=== PATIENT | female | born 1990 | race Caucasian/White ===

== ENCOUNTER 2016-07-06 23:34 | Emergency (ER) | payer OTHER ==
[2016-07-06 23:54] VITALS: BP 133/65
--- NOTE | 2016-07-07 01:09 | ERNOTE ---
Medical Problem HPI - Narrative Date of Service: 07/07/16 - OB Dr. Tana Nagy - General Chief Complaint: General Assessment Time Seen by Provider: 07/07/16 00:48 Source: patient Exam Limitations: no limitations - Immun/Allergies/Home Medications Immunizations: IMMUNIZATION HX Immunizations Up to Date No History of Influenza Vaccine No Hx Pneumococcal Vaccination No Allergies/Adverse Reactions: Allergies amoxicillin [Amoxicillin] Allergy (Unknown, Verified 07/06/16 23:55) egg Allergy (Unknown, Verified 07/06/16 23:55) Nausea flu vaccine 2010- *RETIRED-01/19/13 [flu vaccine [id number] (3 yr +)] Allergy ( Unknown, Verified 07/06/16 23:55) Penicillins Allergy (Unknown, Verified 07/06/16 23:55) Home Medications: HOME MEDICATIONS NK [No Home Medication] 07/06/16 [Last Taken Unknown] - Pain Score Pain Score #1 Pain Score: 4 - intermittent comes and goes - History of Present History Narrative: Patient is a female at 7 weeks gestation by early Vaginal US. Presents with pelvic cramping and vaginal bleeding. Last 1 + yr ago, delivered via . Date (Duration): 07/04/16 - evaluated by OB on Saturday, IUP 7 weeks confirmed Time (Timing): 08:00 Timing: intermittent Severity: moderate Modifying Factors - (Improves): Present: rest, other Modifying Factors - (Worsens): Present: movement, other - unclear why it is worsening Review of Systems - Narrative Narrative: female at 7 weeks gestation and started spotting on Saturday confirmed IUP via US 7 weeks, started spotting 2 hrs prior to presentation - Review of Systems Constitutional: Present: no symptoms reported EYE: Present: no symptoms reported ENT: Present: no symptoms reported Respiratory: Present: no symptoms reported Cardiology: Present: no symptoms reported Gastrointestinal/Abdominal: Present: abdominal pain, other - right lower quadrant / IUP 7 WKS Genitourinary: Present: no symptoms reported Musculoskeletal: Present: no symptoms reported. Absent: back pain, muscle pain Skin: Present: no symptoms reported Neurological: Present: no symptoms reported Endocrine: Present: no symptoms reported Hematologic/Lymphatic: Present: no symptoms reported Psych: Present: no symptoms reported - Patient's Past Medical History Patient History - Medical: No pertinent hx, Other - CURRENT IUP 7 WKS Patient History - Cardiac/Respiratory: No pertinent hx Patient History - Cancer: No Hx of Cancer Patient History - Surgical Procedures: Cholecystectomy, - Social History Living Situations: home Does anyone smoke in the home?: Yes - Patient Smoking Status: Former smoker Have you smoked in the past 12 months: Yes Alcohol Use: none Drug Use: none Physical Exam - Physical Exam Narrative: distressed when crampy abdominal worsens. General Appearance: Present: wd/wn, alert, no apparent distress, mild distress Eye Exam: Normal inspection: bilateral, PERRL: bilateral, EOMI: bilateral Ears, Nose, Throat: Present: normal ENT inspection, hearing grossly normal, normal pharynx Neck: Present: normal inspection, nontender Respiratory: Present: no respiratory distress, normal breath sounds, chest nontender, lungs clear Peripheral Pulses: N=norm/S=strong/W=weak/B=bound/A=absent: Carotid (R): Normal , Carotid (L): Normal, Radial (R): Normal, Radial (L): Normal Gastrointestinal/Abdominal: Present: normal bowel sounds, tenderness - right lower quad Rectal Exam: Present: nontender, normal rectal tone Back Exam: Present: normal inspection, normal range of motion, no CVA tenderness , no vertebral tenderness Extremity Exam: Present: normal inspection, non-tender. Absent: pedal edema Neurological Exam: Present: alert, oriented, normal mood/affect, no motor/ sensory deficits Skin Exam: Present: normal color, warm/dry Lymphatic Exam: Present: no adenopathy Pelvic Exam: Present: tender adnexa - on right consistent with corpus leutum cyst probably , other - old dark blood, cervical os is closed, bluish color to the cervix consistent with . Absent: active bleeding, discharge, lesions ED Progress - Date and Time Seen: Date and Time: 07/07/16 02:56 Patient is noted to have increasing Quantitative HCG since 07/04/2016 patient will get Rhogam and be discharged to follow up with her OBGyn. - Results and Orders Patient's Lab Results:: I have reviewed the patient's lab results. - Vital Signs Patient's Vital Signs:: I have reviewed the patient's vital signs. Vital Signs: Vital Signs 07/06/16 23:48 Temperature 36.3 C L Pulse Rate 104 H Respiratory 18 Rate Blood Pressure 133/65 - CT/Ultrasound CT/Ultrasound Narrative: Reviewed prior US done on Saturday. - Progress/Reassessment Chief Complaint: General Assessment Progress:: Pain free at discharge Plan - Plan Plan: Patient hcg levels increasing : positive for now, in that we have a confirmed IUP and no further bright red bleeding and she has a follow up with her ob next week. Laboratory Last Values WBC 9.2 K/mm3 (4.0-10.5) 07/07/16 01:20 RBC 3.72 M/mm3 (4.2-5.4) L 07/07/16 01:20 Hgb 11.3 gm/dL (12.5-16.0) L 07/07/16 01:20 Hct 32.9 % (37.0-47.0) L 07/07/16 01:20 MCV 88.4 fl (78-100) 07/07/16 01:20 MCH 30.4 pg (27-31) 07/07/16 01:20 MCHC 34.3 g/dl (32-36) 07/07/16 01:20 RDW 12.3 % (11.5-14.0) 07/07/16 01:20 Plt Count 206 K/mm3 (150-450) 07/07/16 01:20 MPV 10.5 fl (6.0-9.5) H 07/07/16 01:20 Immature Gran % (Auto) 0.30 % (0.001-0.429) 07/07/16 01:20 Immature Gran # (Auto) 0.03 K/mm3 (0.000-0.0310) 07/07/16 01:20 Neutrophils % 73.6 % (42-75.0) 07/07/16 01:20 Lymphocytes % 17.1 % (20-51) L 07/07/16 01:20 Monocytes % 7.6 % (0.0-9) 07/07/16 01:20 Eosinophils % 1.0 % (0.0-3.0) 07/07/16 01:20 Basophils % 0.4 % (0.0-1.0) 07/07/16 01:20 Nucleated RBC % 0.0 k/mm3 (0-1) 07/07/16 01:20 Neutrophils # 6.8 K/mm3 (1.3-6.0) H 07/07/16 01:20 Lymphocytes # 1.6 k/mm3 (1.5-3.5) 07/07/16 01:20 Monocytes # 0.7 k/mm3 (0.0-1.0) 07/07/16 01:20 Eosinophils # 0.1 k/mm3 (0.0-0.7) 07/07/16 01:20 Absolute Basophils 0.0 k/mm3 (0.0-0.1) 07/07/16 01:20 Sodium 140 mmol/L (132-142) 07/07/16 01:20 Plasma Sodium 140 mmol/L (130-142) 07/07/16 01:20 Potassium 3.5 mmol/L (3.4-4.6) 07/07/16 01:20 Chloride 105 mmol/L (97-106) 07/07/16 01:20 Carbon Dioxide 22.3 mmol/L (24-32.6) L 07/07/16 01:20 Anion Gap 16.2 mmol/L (6.8-13.8) H 07/07/16 01:20 BUN 7 mg/dL (3-23) 07/07/16 01:20 Creatinine 0.44 mg/dL (0.4-1.4) 07/07/16 01:20 Est GFR (Non-Af Amer) 184 mL/min (60-130) H 07/07/16 01:20 BUN/Creatinine Ratio 15.9 (9.0-21.6) 07/07/16 01:20 Random Glucose 98 mg/dL (70-110) 07/07/16 01:20 Calcium 8.9 mg/dL (7.9-10.9) 07/07/16 01:20 Calcium Adj for Albumin 8.6 mg/dL (8.4-10.2) 07/07/16 01:20 Total Bilirubin 0.3 mg/dL (0.0-1.1) 07/07/16 01:20 AST 8 U/L (0-48) 07/07/16 01:20 ALT 15 U/L (19-67) L 07/07/16 01:20 Alkaline Phosphatase 73 U/L (50-170) 07/07/16 01:20 Total Protein 7.0 gm/dL (6.2-8.2) 07/07/16 01:20 Albumin 4.0 gm/dl (3.4-5.0) 07/07/16 01:20 Urine Color Colorless 07/07/16 01:20 Urine Appearance Turbid 07/07/16 01:20 Urine pH 7.0 pH (5.0-7.0) 07/07/16 01:20 Ur Specific [place] <=1.005 SP.GR. (1.005-1.010) 07/07/16 01:20 Urine Protein Negative mg/dL (NEGATIVE) 07/07/16 01:20 Urine Glucose (UA) Negative mg/dL (NEGATIVE) 07/07/16 01:20 Urine Ketones Negative mg/dL (NEGATIVE) 07/07/16 01:20 Urine Blood 50 /ul (NEGATIVE) H 07/07/16 01:20 Urine Nitrate Negative (NEGATIVE) 07/07/16 01:20 Urine Bilirubin Negative mg/dl (NEGATIVE) 07/07/16 01:20 Urine Urobilinogen Normal EU/dl (NORMAL) 07/07/16 01:20 Ur Leukocyte Esterase Negative /ul (NEGATIVE) 07/07/16 01:20 Urine RBC 10-25 /hpf (0-5) H 07/07/16 01:20 Urine WBC 0-5 /hpf (0-5) 07/07/16 01:20 Ur Epithelial Cells 5-10 /hpf (0-5) H 07/07/16 01:20 Urine Bacteria None seen (NONE) 07/07/16 01:20 Urine Culture Comments No culture indicated 07/07/16 01:20 Maternal Serum HCG 49031 mIU/mL (0-6) H D 07/07/16 01:49 Screen Negative (Negative) 07/07/16 01:31 Patient stable for discharge. Departure - Departure Clinical Impression: First trimester bleeding Rh negative status during Qualifiers: Trimester: first trimester Qualified Code(s): O09.891 - Supervision of other high risk pregnancies, first trimester Disposition: Home self-care Condition: Good Additional Instructions: Your HCG is increasing, to treat the vaginal bleeding, please do not lift greater than 25 lbs and rest, drink plenty of fluids return if vaginal bleeding recurrs. See your Ob provider in 5 days. Referrals: Alireza Nagy DO [Primary Care Provider] -
[2016-07-07] MEDS ORDERED: NORMAL SALINE 1,000 ML IV ONE (01:14)
[2016-07-07 01:24] LABS: Hematocrit 32.9 % (37.0-47.0); Hemoglobin 11.3 gm/dL (12.5-16.0); Mean Cell Volume 88.4 fl (78-100); Mean Corpuscular Hemoglobin 30.4 pg (27-31); Mean Corpuscular Hgb Conc 34.3 g/dl (32-36); Mean Platelet Volume 10.5 fl (6.0-9.5); Neutrophil # 6.8 K/mm3 (1.3-6.0); Neutrophil % 73.6 % (42-75.0); Platelet Count 206 K/mm3 (150-450); Red Blood Count 3.72 M/mm3 (4.2-5.4); Red Cell Distribution Width 12.3 % (11.5-14.0); White Blood Count 9.2 K/mm3 (4.0-10.5)
[2016-07-07 01:28] LABS: Urine Bilirubin Negative (NEGATIVE); Urine Blood 50 /ul (NEGATIVE); Urine Ketone Negative (NEGATIVE); Urine Nitrite Negative (NEGATIVE); Urine Protein Negative (NEGATIVE); Urine Specific Gravity <=1.005 SP.GR. (1.005-1.010); Urine Urobilinogen Normal (NORMAL)
[2016-07-07 01:38] LABS: Anion Gap 16.2 mmol/L (6.8-13.8); BUN/Creatinine Ratio 15.9 (9.0-21.6); Bilirubin, Total 0.3 mg/dL (0.0-1.1); Ca. Corrected For Albumin 8.6 mg/dL (8.4-10.2); Calcium * 8.9 mg/dL (7.9-10.9); Carbon Dioxide 22.3 mmol/L (24-32.6); Potassium 3.5 mmol/L (3.4-4.6)
[2016-07-07 01:41] LABS: Urine Appearance Turbid; Urine Bacteria None Seen; Urine Color Colorless; Urine WBC 0-5 /hpf (0-5)
[2016-07-07] MEDS ORDERED: RHO(D) IMMUNE GLOBULIN 300 MCG DISP.SYRIN IM ONE (03:00)
== END 2016-07-07 03:13 | disposition home or self-care (01) ==
LOC: ER 23:34
DX: O20.9 Hemorrhage in early pregnancy, unspecified (principal); O09.891 Supervision of other high risk pregnancies, first trimester; R10.2 Pelvic and perineal pain; Z3A.01 Less than 8 weeks gestation of pregnancy; Z87.891 Personal history of nicotine dependence
CPT/HCPCS: 36415; 80053; 81001; 84702; 85025; 85460; 96372; 99284; J2790

== ENCOUNTER 2016-08-17 18:36 | Emergency (ER) | payer OTHER ==
[2016-08-17 19:02] VITALS: BP 110/64
[2016-08-17] MEDS ORDERED: NORMAL SALINE 1,000 ML IV ONE (20:18)
[2016-08-17] MEDS ORDERED: METOCLOPRAMIDE HCL 5 MG/ML VIAL IV ONE (20:22)
[2016-08-17] MEDS ORDERED: diphenhydrAMINE HCL 50 MG/ML VIAL IV ONE (20:22)
--- OUTSIDE RECORDS SUMMARY | 2016-08-17 20:22 | XMS REPORT | Continuity of Care Document ---
:1990 Author Organization [facility] ([facility]) Address [address] [place] [address] Phone [phone] Care Team Providers Name Role Phone LloydAlyssa Primary Care Provider [phone] Source Comments This disclosure is being made pursuant to the Care Everywhere program, applicable federal and state laws, and may not contain all informaitonavailable regarding this patient.[facility] ([facility]) Active Allergies and Adverse Reactions Not on File Current Medications Not on file Active Problems Not on file Social History Tobacco Use Types Packs/Day Years Used Date Never Assessed Plan of Care Health Maintenance Due Date Last Done Comments Hepatitis B Vaccine (1 of 3 - Primary Series) 1990 HPV Vaccine (1 of 3 - Female/Unknown 3 Dose Series) 2001 Tdap Vaccine 2001 Cervical Cancer Screening 2008 Lipid Disorder Screening 2008 MMR Vaccine 2008 Td Vaccine 2008 Varicella Vaccine (1 of 2 - Adult - No Evidence of 2008 Immunity) Influenza Vaccine: Seasonal (#1) 01/16/2016 Results from Last 3 Months Not on file
--- NOTE | 2016-08-17 20:32 | ERNOTE ---
Headache ER HPI - Narrative Date of Service: 08/17/16 - General Presenting Symptoms: "migraine" Time Seen by Provider: 08/17/16 20:03 Source: patient Exam Limitations: no limitations - Immun/Allergies/Home Medications Immunizations: IMMUNIZATION HX Immunizations Up to Date No History of Influenza Vaccine No Hx Pneumococcal Vaccination No Allergies/Adverse Reactions: Allergies amoxicillin [Amoxicillin] Allergy (Unknown, Verified 07/06/16 23:55) egg Allergy (Unknown, Verified 07/06/16 23:55) Nausea flu vaccine 2010- *RETIRED-01/19/13 [flu vaccine 5937-6556 (3 yr +)] Allergy ( Unknown, Verified 07/06/16 23:55) Penicillins Allergy (Unknown, Verified 07/06/16 23:55) Home Medications: HOME MEDICATIONS NK [No Home Medication] 07/06/16 [Last Taken Unknown] - History of Present Illness Narrative: Pt. comes in with c/o migraine for two weeks. Pt. states that it is sometimes accompanied by numbness and tingling in her arm or leg, but that is random and does not follow any pattern with the migraine and is intermittent as well. Pt. denies any SOB, CP, or diarrhea but she has been nauseated and is not feeling relief despite taking 1000 mg of magnesium as prescribed by her OB. Timing of Headache: gradual, intermittent Quality: Present: achy Review of Systems - Review of Systems Constitutional: Present: no symptoms reported. Absent: recent illness, fever, chills, weakness, fatigue, malaise EYE: Present: no symptoms reported ENT: Present: no symptoms reported Respiratory: Present: no symptoms reported. Absent: shortness of breath, cough , wheezing Cardiology: Present: no symptoms reported. Absent: chest pain, palpitations, edema Gastrointestinal/Abdominal: Present: nausea, vomiting, eating less, drinking less. Absent: diarrhea, abdominal pain Genitourinary: Present: decreased urinary output. Absent: frequency, pain, discharge Musculoskeletal: Present: no symptoms reported. Absent: back pain, joint pain Skin: Present: no symptoms reported. Absent: rash, change in hair/nails Neurological: Present: headache, numbness, tingling. Absent: dizziness/light- headedness All Other Systems: All systems neg except as marked - Patient's Past Medical History Patient History - Medical: No pertinent hx Patient History - Cardiac/Respiratory: No pertinent hx Patient History - Cancer: No Hx of Cancer Patient History - Surgical Procedures: Cholecystectomy, Patient History - Other: None LMP (Calendar): 05/18/16 - Social History Living Situations: home Psych History: No pertinent hx Does anyone smoke in the home?: Yes - Patient Smoking Status: Former smoker Have you smoked in the past 12 months: Yes Alcohol Use: none Drug Use: none - Immunizations Immunizations Up to Date: No Hx Pneumococcal Vaccination: No History of Influenza Vaccine: No Physical Exam - Physical Exam General Appearance: Present: wd/wn, alert, no apparent distress Eye Exam: Normal inspection: bilateral, PERRL: bilateral, EOMI: bilateral Ears, Nose, Throat: Present: normal ENT inspection, normal pharynx Neck: Present: normal inspection, nontender. Absent: lymphadenopathy (R), lymphadenopathy (L) Respiratory: Present: no respiratory distress, normal breath sounds, no accessory muscle use, chest nontender, lungs clear Cardiovascular/Chest: Present: regular rate, rhythm, no murmur, normal peripheral pulses Back Exam: Present: normal inspection Extremity Exam: Present: normal inspection, no edema Neurological Exam: Present: alert, oriented, normal mood/affect, no motor/ sensory deficits, youth advocate II-XII nml as tested, normal cerebellar test Skin Exam: Present: normal color, warm/dry. Absent: pallor, skin rash ED Progress - Date and Time Seen: Date and Time: 08/17/16 20:32 heart tones positive in the 160s. 08/17/16 22:[address] Austin and [facility] and will pass on to Dr Bowling in the case that pt. may need neurology consult in the future. - Results and Orders Patient's Lab Results:: I have reviewed the patient's lab results. - Vital Signs Patient's Vital Signs:: I have reviewed the patient's vital signs. Vital Signs: Vital Signs 08/17/16 18:53 Temperature 37.3 C Pulse Rate 100 Respiratory 18 Rate Blood Pressure 110/64 O2 Sat by Pulse 100 Oximetry - Progress/Reassessment Chief Complaint: Headache Departure Clinical Impression: Migraine Qualifiers: Migraine type: without aura Status migrainosus presence: without status migrainosus Intractability: not intractable Qualified Code(s): G43.009 - Migraine without aura, not intractable, without status migrainosus - Departure Disposition: Home self-care Condition: Good Instructions: Recurrent Migraine Headache, [id number] Additional Instructions: Please follow up with OB provider in 2-3 days. Referrals: Alireza Nagy DO [Primary Care Provider] -
[2016-08-17] MEDS ORDERED: METOCLOPRAMIDE HCL 5 MG/ML VIAL ONE (20:35)
[2016-08-17] MEDS ORDERED: diphenhydrAMINE HCL 50 MG/ML VIAL ONE (20:35)
[2016-08-17 20:54] LABS: Hemoglobin 11.7 gm/dL (12.5-16.0); Mean Cell Volume 90.2 fl (78-100); Mean Corpuscular Hgb Conc 34.4 g/dl (32-36); Mean Platelet Volume 10.3 fl (6.0-9.5); Neutrophil # 8.4 K/mm3 (1.3-6.0); Neutrophil % 78.6 % (42-75.0); Platelet Count 237 K/mm3 (150-450); Red Blood Count 3.77 M/mm3 (4.2-5.4); Red Cell Distribution Width 12.8 % (11.5-14.0); White Blood Count 10.7 K/mm3 (4.0-10.5)
[2016-08-17 21:03] LABS: Albumin * 4.2 gm/dl (3.4-5.0); Anion Gap 15.8 mmol/L (6.8-13.8); BUN/Creatinine Ratio 15.6 (9.0-21.6); Bilirubin, Total 0.3 mg/dL (0.0-1.1); Ca. Corrected For Albumin 8.4 mg/dL (8.4-10.2); Calcium * 8.9 mg/dL (7.9-10.9); Carbon Dioxide 23.8 mmol/L (24-32.6); Potassium 3.6 mmol/L (3.4-4.6); Total Protein 7.8 gm/dL (6.2-8.2)
[2016-08-17 21:41] LABS: Urine Bilirubin Negative (NEGATIVE); Urine Blood Negative /ul (NEGATIVE); Urine Ketone Negative (NEGATIVE); Urine Nitrite Negative (NEGATIVE); Urine Protein Negative (NEGATIVE); Urine Urobilinogen Normal (NORMAL); Urine pH 6.5 pH (5.0-7.0)
[2016-08-17 21:51] LABS: Urine Appearance Clear; Urine Bacteria TRACE; Urine Color Yellow; Urine Mucus Moderate - 2+; Urine RBC TRACE /hpf (0-5); Urine WBC TRACE /hpf (0-5)
== END 2016-08-17 22:25 | disposition home or self-care (01) ==
LOC: ER 18:36
DX: G43.009 Migraine without aura, not intractable, without status migrainosus (principal)

== ENCOUNTER 2016-12-20 15:51 | Emergency (ER) | payer OTHER ==
--- NOTE | 2016-12-20 17:50 | ERNOTE ---
Lower Extremity HPI - General Lower Extremities Pain: leg: bilateral Time Seen by Provider: 12/20/16 16:02 Source: patient Exam Limitations: no limitations - Immun/Allergies/Home Medications Immunizations: IMMUNIZATION HX Immunizations Up to Date Yes History of Influenza Vaccine No Hx Pneumococcal Vaccination No Allergies/Adverse Reactions: Allergies Allergy/AdvReac Type Severity Reaction Status Date / Time amoxicillin [Amoxicillin] Allergy Unknown Verified 12/20/16 16:12 egg Allergy Unknown Nausea Verified 12/20/16 16:12 flu vaccine 2010- Allergy Unknown Verified 12/20/16 16:12 *RETIRED-01/19/13 [flu vaccine [id number] (3 yr +)] Penicillins Allergy Unknown Verified 12/20/16 16:12 Home Medications: HOME MEDICATIONS Acetaminophen [Tylenol] 650 mg PO Q4H PRN 11/11/16 [Last Taken 11/11/16 09:00] Ferrous Sulfate 324 mg PO DAILY 11/11/16 [Last Taken Unknown] Nitrofurantoin Macrocrystal [Macrodantin] 100 mg PO BID #20 capsule 11/11/16 [ Last Taken Unknown] Vit#96/Ferrous Fum/FA [ S] 1 tab PO DAILY 11/11/16 [Last Taken Unknown] - History of Present Illness Narrative: Patient presents with left thigh and right calf pain. Patient was sent over from the OB clinic to rule out DVTs. The pain as moderate in intensity. Occurred: other - over the past few days Method of Injury: Reports: no apparent injury Loss of Consciousness: Reports: no loss of consciousness Associated Symptoms: Reports: none Other Injuries: Reports: none Review of Systems - Review of Systems Constitutional: Present: See HPI EYE: Present: no symptoms reported ENT: Present: no symptoms reported Respiratory: Present: no symptoms reported Cardiology: Present: no symptoms reported Gastrointestinal/Abdominal: Present: no symptoms reported Genitourinary: Present: no symptoms reported Musculoskeletal: Present: See HPI Skin: Present: no symptoms reported Neurological: Present: no symptoms reported Endocrine: Present: no symptoms reported Hematologic/Lymphatic: Present: no symptoms reported Psych: Present: no symptoms reported - Patient's Past Medical History Patient History - Medical: Anemia, Other - currently 31 weeks Patient History - Cardiac/Respiratory: No pertinent hx Patient History - Cancer: No Hx of Cancer Patient History - Surgical Procedures: Cholecystectomy, Patient History - Other: None LMP (females 10-50): LMP (Calendar): 05/18/16 - Social History Living Situations: home Psych History: No pertinent hx Does anyone smoke in the home?: Yes - Patient Smoking Status: Former smoker Alcohol Use: none Drug Use: none - Immunizations Immunizations Up to Date: Yes Hx Pneumococcal Vaccination: No History of Influenza Vaccine: No Physical Exam - Physical Exam General Appearance: Present: wd/wn, alert, mild distress Eye Exam: Normal inspection: bilateral, PERRL: bilateral Ears, Nose, Throat: Present: normal ENT inspection, H, normal pharynx Neck: Present: normal inspection, nontender Respiratory: Present: no respiratory distress, normal breath sounds, no accessory muscle use, chest nontender, lungs clear Cardiovascular/Chest: Present: regular rate, rhythm, no murmur, normal peripheral pulses Gastrointestinal/Abdominal: Present: normal bowel sounds, nontender, nondistended, soft, no organomegaly Rectal Exam: Present: deferred Back Exam: Present: normal inspection, normal range of motion Extremity Exam: Present: normal range of motion, no edema, calf tenderness Neurological Exam: Present: alert, oriented, normal mood/affect Skin Exam: Present: normal color, warm/dry Lymphatic Exam: Present: no adenopathy ED Progress - Vital Signs Patient's Vital Signs:: I have reviewed the patient's vital signs. Vital Signs: Vital Signs 12/20/16 16:07 Temperature 37.3 C Pulse Rate 109 H Respiratory 16 Rate Blood Pressure 117/66 O2 Sat by Pulse 98 Oximetry - CT/Ultrasound CT/Ultrasound Narrative: Venous Doppler ultrasound reports were reviewed with no evidence of DVTs in either leg - Progress/Reassessment Chief Complaint: Lower Extremity Pain/ Injury Plan - Plan Plan: Pt will return to the OB clinic for follow-up Departure Clinical Impression: Myofasciitis - Departure Disposition: Home self-care Condition: Good Instructions: Muscle Cramps and Spasms Referrals: Alireza Nagy DO [Primary Care Provider] -
[2016-12-20 18:01] VITALS: BP 103/52
== END 2016-12-20 17:58 | disposition home or self-care (01) ==
LOC: ER 15:51
DX: O26.893 Other specified pregnancy related conditions, third trimester (principal); M79.652 Pain in left thigh; M79.661 Pain in right lower leg; M60.9 Myositis, unspecified; Z3A.31 31 weeks gestation of pregnancy

== ENCOUNTER 2017-01-09 14:53 | Observation (INO) | payer OTHER ==
[2017-01-09] MEDS ORDERED: RINGER'S SOLUTION,LACTATED 1,000 ML IV PRN (15:06)
[2017-01-09] MEDS ORDERED: TERBUTALINE SULFATE 1 MG/ML VIAL SC PRN (15:17)
[2017-01-09 15:32] LABS: Hematocrit 31.4 % (37.0-47.0); Hemoglobin 10.8 gm/dL (12.5-16.0); Mean Cell Volume 89.5 fl (78-100); Mean Corpuscular Hemoglobin 30.8 pg (27-31); Mean Corpuscular Hgb Conc 34.4 g/dl (32-36); Mean Platelet Volume 10.8 fl (6.0-9.5); Neutrophil % 80.1 % (42-75.0); Platelet Count 214 K/mm3 (150-450); Red Blood Count 3.51 M/mm3 (4.2-5.4); Red Cell Distribution Width 12.7 % (11.5-14.0)
[2017-01-09] MEDS ORDERED: MAGNESIUM SULFATE IN WATER 1,000 ML IV PRN (16:01)
[2017-01-09] MEDS ORDERED: MAGNESIUM SULFATE IN WATER 50 ML, MAGNESIUM SULFATE IN WATER 50 ML IV ONE ×2 (16:01)
[2017-01-09] MEDS ORDERED: BETAMETH ACET/BETAMET SOD PHOS 6 MG/ML VIAL IM PRN (16:01)
[2017-01-09] MEDS ORDERED: CLINDAMYCIN PHOSPHATE 900 MG in DEXTROSE 5 % IN WATER 100 ML IV SCH ×2 (16:15)
== END 2017-01-09 17:25 | disposition short-term general hospital (02) ==
LOC: OBCLINIC 14:53 → OB 16:32
PROVIDERS: ADMIT Obstetrics & Gynecology; ATTEND Obstetrics & Gynecology
DX: O60.03 Preterm labor without delivery, third trimester (principal); Z3A.34 34 weeks gestation of pregnancy; O99.013 Anemia complicating pregnancy, third trimester; O34.219 Maternal care for unspecified type scar from previous cesarean delivery
CPT/HCPCS: 36415; 59025; 85025; 96365; 96367; 96372; G0378

== ENCOUNTER 2017-02-05 14:35 | Inpatient (IN) | payer OTHER ==
[2017-02-05] MEDS ORDERED: RINGER'S SOLUTION,LACTATED 1,000 ML IV PRN ×2 (14:38)
[2017-02-05] MEDS ORDERED: ceFAZolin SODIUM/DEXTROSE,ISO 2 GM/50 ML BAG IV PRN (14:38)
[2017-02-05 15:08] LABS: Hematocrit 32.4 % (37.0-47.0); Hemoglobin 10.9 gm/dL (12.5-16.0); Mean Cell Volume 90.5 fl (78-100); Mean Corpuscular Hemoglobin 30.4 pg (27-31); Mean Corpuscular Hgb Conc 33.6 g/dl (32-36); Mean Platelet Volume 10.9 fl (6.0-9.5); Neutrophil # 8.2 K/mm3 (1.3-6.0); Neutrophil % 79.5 % (42-75.0); Platelet Count 228 K/mm3 (150-450); Red Blood Count 3.58 M/mm3 (4.2-5.4); Red Cell Distribution Width 13.2 % (11.5-14.0); White Blood Count 10.3 K/mm3 (4.0-10.5)
[2017-02-05] MEDS ORDERED: OXYTOCIN 20 UNITS in RINGER'S SOLUTION,LACTATED 1,000 ML IV ONE ×2 (16:00→17:05)
[2017-02-05] MEDS ORDERED: RINGER'S SOLUTION,LACTATED 1,000 ML IV ONE (16:30)
[2017-02-05] MEDS ORDERED: BISACODYL 10 MG SUPP.RECT RC PRN (18:26)
[2017-02-05] MEDS ORDERED: ONDANSETRON HCL/PF 2 MG/ML VIAL IV PRN (18:26)
[2017-02-05] MEDS ORDERED: SIMETHICONE 80 MG TAB.CHEW PO PRN (18:26)
[2017-02-05] MEDS ORDERED: oxyCODONE HCL/ACETAMINOPHEN 1 TAB TABLET PO PRN (18:26)
[2017-02-05] MEDS ORDERED: SENNOSIDES 8.6 MG TABLET PO PRN (18:26)
--- NOTE | 2017-02-05 18:32 | OR ---
Anesthesia Procedure Note - Anesthesia Procedure Note Date of Service: 02/05/17 Narrative: Vital Signs - Last Taken Temp 36.4 C L 02/05/17 18:10 Pulse 92 02/05/17 18:30 Resp 16 02/05/17 18:30 BP 103/52 02/05/17 18:30 Pulse Ox 100 02/05/17 18:30 O2 Oxygen Delivery Method Room Air 02/05/17 18:31 ANESTHESIA PROCEDURE NOTE Date of Procedure: 02/05/2017 Time of procedure: 1814. Performed by: BOOKER Street CRNA, MSN Operating Room Registered Nurse: Cristin Aragon RN. Preprocedure diagnosis: Post section pain. Post procedure diagnosis: Same. Procedure: Bilateral TAP block Indications: Post section pain relief. Findings: See below. Details of the procedure: The patient was brought to PACU and placed in the supine position. The patient was prepped with chlorhexidine and using ultrasound guidance the 3 abdominal muscular planes were identified and lidocaine 1% was infiltrated to the skin of the intended injection site. Under ultrasound guidance the the internal oblique and transverse this abdominis muscle layers were approached until the tip of the block needle rested in the plane between the muscles. 25 mL bupivacaine 0.5% with 1-200,000 epinephrine was injected and the procedure was repeated on the other side. Please see radiology/ultrasound report for details and images of the procedure. EBL: 0 Fluids: N/A. Specimen: N/A. Post procedure condition: The patient tolerated the procedure well. No complications were noted. Thank you for this consultation. Kunal Bird CRNA, BOOKER, MSN
--- NOTE | 2017-02-05 18:37 | OR ---
Operative Report - Dictated Report Narrative: Indication: 26-year-old 2 para 1 at 37-4/7 weeks presents in labor with prior section desiring sterilization via bilateral salpingectomy. Pre Operative Diagnosis: 37-4/7 week intrauterine , prior section, desires permanent sterilization via bilateral salpingectomy Post Operative Diagnosis: Same. Procedure: Repeat low transverse section. Bilateral salpingectomy. Abdominal scar revision - 16cm Surgeon: Tana Nagy DO Corporate Attorney: OR Staff Anesthesia: Spinal, TAP block Estimated Blood Loss: 200 mL Urine Output: 200 mL clear urine Fluids Replacement: 1700 mL Drains: Bland to gravity Surgical Complications: None Specimens: Placenta to freezer. Fallopian tubes to pathology Findings: Male born at 1701 on 02/05/2017 in cephalic presentation with Apgars 8 and 9, weighing 2751 g. Normal tubes and ovaries. Extremely thin (1- 2 mm) lower uterine segment. Rectus diathesis Technique: The patient was taken to the operating room and placed in dorsal supine position with a left lateral tilt. After adequate spinal anesthesia, bland catheter inserted, SCDs placed, and 2 g of Ancef given preoperatively, the previous scar was excised in an elliptical fashion and the abdominal cavity was entered using sharp and blunt dissection. Two rolled laps were placed in the pericolic gutters on either side of the uterus. A transverse incision was made in the lower uterine segment and extended laterally and upwardly with digital traction. Clear fluid was noted upon amniotomy. The was delivered easily. The infant was dried and warmed while waiting approximately 60 seconds before clamping and cutting the cord. He was then handed off to awaiting street light repairer. The placenta was allowed to deliver spontaneously. The uterus was cleared of clot and debris. Uterine incision was closed with 0 Vicryl using a running stitch. A second imbricating layer was placed. Excellent hemostasis was noted. The right fallopian tube was identified and followed out to the fimbriated end. The mesosalpinx was coagulated with the Kleppinger's and transected. The exact same was done on the patient's left side. The tubes were sent to pathology. Excellent hemostasis was assured. The rolled laps were removed from the abdominal cavitiy. The peritoneum was closed with a running 3-0 Monocryl. The same suture was used to approximate the rectus muscles. The fascia was closed with a running 0 Vicryl. The subcutaneous layer was closed with a running 3-0 Monocryl. The same suture was used to approximate the subdermal layer. The skin was closed with a running 4- 0 Monocryl and Dermabond. Sponge, lap, needle, and instrument count were correct x 2. Disposition: To post anesthesia care unit in good condition History for MU Definition: * The number of deliveries resulting in a live the patient experienced prior to current hospitalization * The previous delivery of live twins or any live multiple gestation is considered one live event. *If primagravida or nulliparous is documented select zero for the number of previous live births. Live Events: 1
[2017-02-05] MEDS: oxyCODONE HCL/ACETAMINOPHEN 1 TAB TABLET PO PRN (20:08)
[2017-02-05] MEDS: DOCUSATE SODIUM 100 MG CAPSULE PO SCH (21:05)
[2017-02-05] MEDS: IBUPROFEN 800 MG TABLET PO PRN (21:06)
[2017-02-06] MEDS: oxyCODONE HCL/ACETAMINOPHEN 1 TAB TABLET PO PRN ×4 (00:49→23:28)
[2017-02-06] MEDS: IBUPROFEN 800 MG TABLET PO PRN ×3 (03:14→23:28)
[2017-02-06] MEDS: ENOXAPARIN SODIUM 40 MG/0.4 ML SYRG SC SCH (07:18)
[2017-02-06] MEDS: DOCUSATE SODIUM 100 MG CAPSULE PO SCH ×2 (08:40→20:15)
--- NOTE | 2017-02-06 14:00 | PN ---
Subjective - Date and Time Seen Date: 02/06/17 Time: 13:59 Objective - Vitals Vitals: Last Vital Signs Temp 36.7 C 02/06/17 11:14 Pulse 74 02/06/17 11:14 Resp 16 02/06/17 11:14 BP 109/63 02/06/17 11:14 Pulse Ox 99 02/06/17 11:14 Patient denies complaints. Tolerating regular diet. Ambulating without difficulty. Pain well controlled. Lochia wnl. Abdomen - soft, appropriately tender Incision - clean, dry, intact Uterus - firm, at umbilicus -1 No calf tenderness Impression: Post op day #1 s/p repeat section. Bilateral salpingectomy. Abdominal scar revision Plan: Continue routine post-operative/ care - Abnormal Lab Findings Abnormal Lab Findings: Abnormal Lab Results 02/05/17 Range/Units 14:57 RBC 3.58 L (4.2-5.4) M/mm3 Hgb 10.9 L (12.5-16.0) gm/dL Hct 32.4 L (37.0-47.0) % MPV 10.9 H (6.0-9.5) fl Immature Gran % (Auto) 0.90 H (0.001-0.429) % Immature Gran # (Auto) 0.09 H (0.000-0.0310) K/mm3 Neutrophils % 79.5 H (42-75.0) % Lymphocytes % 10.9 L (20-51) % Neutrophils # 8.2 H (1.3-6.0) K/mm3 Lymphocytes # 1.1 L (1.5-3.5) k/mm3 [facility] Physician Documentation - Urinary Catheter Management Urethral ([facility]) Date of Insertion: 02/05/17 Time of Insertion: 16:00 Date of Removal: 02/06/17 Time of Removal: 07:00
[2017-02-07 07:59] VITALS: BP 115/65
[2017-02-07] MEDS: ENOXAPARIN SODIUM 40 MG/0.4 ML SYRG SC SCH (08:19)
[2017-02-07] MEDS: DOCUSATE SODIUM 100 MG CAPSULE PO SCH (08:22)
--- NOTE | 2017-02-07 12:24 | PN ---
Subjective - Date and Time Seen Date: 02/07/17 Time: 12:23 Objective - Vitals Vitals: Last Vital Signs Temp 36.8 C 02/07/17 07:49 Pulse 86 02/07/17 07:49 Resp 18 02/07/17 07:49 BP 115/65 02/07/17 07:49 Pulse Ox 98 02/07/17 07:49 Patient denies complaints. Ambulating well. Tolerating regular diet. Pain well controlled. Lochia wnl. Abdomen - soft, appropriately tender Incision - clean, dry, intact Uterus - firm, at umbilicus -2 No calf tenderness Impression: Post op day #2 s/p repeat section with bilateral salpingectomy and abdominal scar revision. Iron deficiency anemia. Plan: Continue routine post-operative/ care. Routine discharge instructions. [facility] Physician Documentation - Urinary Catheter Management Urethral ([facility]) Date of Insertion: 02/05/17 Time of Insertion: 16:00 Date of Removal: 02/06/17 Time of Removal: 07:00
== END 2017-02-07 16:00 | disposition home or self-care (01) | DRG 766 ==
LOC: MS 14:35
PROVIDERS: ADMIT Obstetrics & Gynecology; ATTEND Obstetrics & Gynecology
PROC: 4A1HXCZ Monitoring of Products of Conception, Cardiac Rate, External Approach (ICD-10-PCS; 2017-02-05)
PROC: 10D00Z1 Extraction of Products of Conception, Low, Open Approach (ICD-10-PCS; principal; 2017-02-05 16:00)
DX: O99.02 Anemia complicating childbirth (principal); D50.8 Other iron deficiency anemias; O34.211 Maternal care for low transverse scar from previous cesarean delivery; O99.334 Smoking (tobacco) complicating childbirth; Z3A.38 38 weeks gestation of pregnancy; Z37.0 Single live birth; Z30.2 Encounter for sterilization